=== PATIENT | male | born 1950 | race Caucasian/White ===

== ENCOUNTER → 2021-04-10 | Outpatient (CLI) | payer MEDICARE, OTHER ==
--- NOTE | 2021-04-10 18:52 | REPVR ---
PROCEDURE INFORMATION: Exam: MR Lumbar Spine Without Contrast Exam date and time: 04/10/2021 3:04 PM Age: 71 years old Clinical indication: Low back pain; Additional info: Radiculopathy TECHNIQUE: Imaging protocol: Multiplanar magnetic resonance images of the lumbar spine without intravenous contrast. COMPARISON: No relevant prior studies available. FINDINGS: Vertebrae: 3 mm of retrolisthesis of L3 on L4. 6 mm of retrolisthesis of L4 on L5. Mild levoconvex scoliosis. No acute fracture seen. Spinal cord: The conus medullaris ends normally. Disc desiccation from L2-L3 through L5-S1. Disc height loss and spondylosis is bcoc-hw-qklkhnut at L4-L5, mild at L3-L4 and L5-S1. There are small lumbar endplate Schmorl's nodes from L2-L3 through L4-L5. Endplate inflammation at L4-L5 and L5-S1 is likely degenerative. L1-L2: No significant disc disease. No significant spinal canal stenosis. No neural foraminal stenosis. L2-L3: Mild disc bulge. No stenoses. L3-L4: Retrolisthesis. Mild disc osteophyte complex as well as mild to moderate facet arthropathy with facet joint effusions. High-intensity zone in left far lateral disc margin without a focal disc protrusion or extrusion. The central spinal canal remains patent. Mild left neural foraminal stenosis. No significant right neural foraminal narrowing. L4-L5: Retrolisthesis. Moderate diffuse disc bulge and facet arthropathy with facet joint effusions. The central spinal canal remains patent. Left lateral recess stenosis is mild. Moderate right and focx-ri-gpcslivb left neural foraminal stenoses. L5-S1: Kasq-xt-rsutnass left eccentric disc osteophyte complex and facet arthropathy. The central spinal canal remains patent. No evidence of S1 nerve root impingement. Yrte-bw-zzshurwi left neural foraminal stenosis. No significant right neural foraminal narrowing. Soft tissues: Nonspecific edema in the back subcutaneous fat, potentially dependent/positional. IMPRESSION: 1. Moderate right and nndz-ze-fhauxvle left neural foraminal stenoses at L4-L5. 2. Xvbb-wm-mjfykavs left neural foraminal stenosis at L5-S1. 3. Mild stenoses elsewhere, as above. Electronically signed by: Claudia Goetz On 04/10/2021 18:52:01 PM
== END ==
LOC: M RAD 13:26
DX: M54.16 Radiculopathy, lumbar region (principal); M48.061 Spinal stenosis, lumbar region without neurogenic claudication